=== PATIENT | male | born 1990 | race Caucasian/White ===

== ENCOUNTER 2017-09-20 13:08 | Emergency (ER) | payer BC ==
[~2017-09-20] VITALS: Ht 182.9 cm; Wt 65.9 kg
[2017-09-20 13:19] VITALS: Ht 182.9 cm; Wt 65.9 kg
[2017-09-20 13:40] LABS: APPEARANCE TURBID (CLEAR); BILIRUBIN NEGATIVE (NEGATIVE); COLOR RED (YELLOW); GLUCOSE NEGATIVE (NEGATIVE); KETONE NEGATIVE (NEGATIVE); NITRITE NEGATIVE (NEGATIVE); PROTEIN 1+ mg/dL (NEGATIVE); RED CELLS - URINE >50 /hpf (0-5); UROBILINOGEN NORMAL (NORMAL)
[2017-09-20 13:41] LABS: BACTERIA FEW /hpf (NONE SEEN)
[2017-09-20 14:31] LABS: BASOPHILS 0.1 % (0-2); EOSINOPHILS 0.2 % (0-7); HEMATOCRIT 44.2 % (42.0-54.0); HEMOGLOBIN 15.3 g/dL (13.5-17.5); IMMATURE GRANULOCYTES 0.3 % (0-5); MCH 31.3 pg (26.0-34.0); MCHC 34.6 g/dL (31.0-37.0); MCV 90.4 fL (80.0-100.0); MEAN PLATELET VOLUME 11.2 fL (7.4-10.4); MONOCYTES 3.9 % (2-11); NEUTROPHILS 88.5 % (40-80); PLATELET COUNT 186 10x3/uL (130-400); RBC 4.89 10x6/uL (4.20-6.10); RDW 12.5 % (11.5-14.5); WBC 16.5 10x3/uL (4.8-10.8)
[2017-09-20 15:47] LABS: ALBUMIN 4.4 g/dL (3.4-5.0); ALKALINE PHOSPHATASE 65 U/L (46-116); ALT (SGPT) 29 U/L (10-68); BILIRUBIN - TOTAL 1.01 mg/dL (0.2-1.3); CALC OSMOLALITY 282 mosm/kg (275-300); CALCIUM 9.4 mg/dL (8.5-10.1); CARBON DIOXIDE 25.6 mmol/L (21.0-32.0); CHLORIDE - SERUM 108 mmol/L (98-107); GLUCOSE 100 mg/dL (74-106); LIPASE 183 U/L (73-393); POTASSIUM - SERUM 3.6 mmol/L (3.5-5.1); PROTEIN - SERUM 7.6 g/dL (6.4-8.2); SODIUM 143 mmol/L (136-145); UREA NITROGEN 8 mg/dL (7-18); eGFR NON AFRICAN AMERICAN > 90 mL/min (90-120)
[2017-09-20] MEDS ORDERED: FLOMAX0.4 MG PO (15:52)
[2017-09-20] MEDS ORDERED: HYDROCODONE-APA1 TAB PO (15:52)
[2017-09-20 16:32] VITALS: BP 132/84
== END 2017-09-20 16:33 | disposition home or self-care (01) ==
LOC: D.ER 13:08
PROVIDERS: Emergency Medicine
DX: N20.9 Urinary calculus, unspecified (principal); N23 Unspecified renal colic

== ENCOUNTER 2017-09-22 13:06 | Emergency (ER) | payer BC ==
[~2017-09-22] VITALS: Ht 182.9 cm; Wt 70.5 kg
[~2017-09-22 13:06] MED LIST: FLOMAX0.4 MG PO; HYDROCODONE-APA1 TAB PO
[2017-09-22 13:16] VITALS: Ht 182.9 cm; Wt 70.5 kg
[2017-09-22 14:42] LABS: BASOPHILS 0.2 % (0-2); EOSINOPHILS 0.7 % (0-7); HEMATOCRIT 42.6 % (42.0-54.0); HEMOGLOBIN 14.6 g/dL (13.5-17.5); IMMATURE GRANULOCYTES 0.3 % (0-5); LYMPHOCYTES 10.9 % (15-50); MCH 31.5 pg (26.0-34.0); MCHC 34.3 g/dL (31.0-37.0); MONOCYTES 5.1 % (2-11); NEUTROPHILS 82.8 % (40-80); RBC 4.63 10x6/uL (4.20-6.10); RDW 12.6 % (11.5-14.5); WBC 18.7 10x3/uL (4.8-10.8)
[2017-09-22 14:58] LABS: ALBUMIN 4.4 g/dL (3.4-5.0); ALKALINE PHOSPHATASE 63 U/L (46-116); ALT (SGPT) 26 U/L (10-68); BILIRUBIN - TOTAL 0.56 mg/dL (0.2-1.3); CALC OSMOLALITY 286 mosm/kg (275-300); CALCIUM 9.6 mg/dL (8.5-10.1); CARBON DIOXIDE 26.2 mmol/L (21.0-32.0); CHLORIDE - SERUM 105 mmol/L (98-107); CREATININE - SERUM 1.2 mg/dL (0.6-1.3); GLUCOSE 110 mg/dL (74-106); POTASSIUM - SERUM 3.5 mmol/L (3.5-5.1); PROTEIN - SERUM 7.7 g/dL (6.4-8.2); SODIUM 144 mmol/L (136-145); UREA NITROGEN 9 mg/dL (7-18); eGFR NON AFRICAN AMERICAN 79 mL/min (90-120)
[2017-09-22 14:58] LABS: UDS - AMPHET NEGATIVE QUAL (NEGATIVE); UDS - BARB NEGATIVE QUAL (NEGATIVE); UDS - BENZO NEGATIVE QUAL (NEGATIVE); UDS - COCAINE NEGATIVE QUAL (NEGATIVE); UDS - OPIATE POSITIVE QUAL (NEGATIVE); UDS - PCP NEGATIVE QUAL (NEGATIVE); UDS - THC POSITIVE QUAL (NEGATIVE)
[2017-09-22 15:58] LABS: PLATELET COUNT 271 10x3/uL (130-400)
[2017-09-22 16:29] LABS: APPEARANCE CLEAR (CLEAR); COLOR YELLOW (YELLOW); GLUCOSE NEGATIVE (NEGATIVE); NITRITE NEGATIVE (NEGATIVE); PROTEIN NEGATIVE (NEGATIVE)
[2017-09-22 16:30] LABS: BACTERIA FEW /hpf (NONE SEEN); BILIRUBIN NEGATIVE (NEGATIVE); KETONE MODERATE mg/dL (NEGATIVE); RED CELLS - URINE 25-50 /hpf (0-5); UROBILINOGEN NORMAL (NORMAL); WHITE CELLS - URINE 0-5 /hpf (0-5)
[2017-09-22] MEDS ORDERED: ZOFRAN4 MG PO (18:28)
[2017-09-22] MEDS ORDERED: TORADOL10 MG PO (18:28)
[2017-09-22 20:35] VITALS: BP 112/58
== END 2017-09-22 19:54 | disposition home or self-care (01) ==
LOC: D.ER 13:06
PROVIDERS: Family Medicine
DX: R10.9 Unspecified abdominal pain (principal); R31.9 Hematuria, unspecified; Z87.442 Personal history of urinary calculi

== ENCOUNTER 2017-10-13 22:43 | Emergency (ER) | payer BC ==
[~2017-10-13] VITALS: Ht 182.9 cm; Wt 65.9 kg
[~2017-10-13 22:43] MED LIST changes: +TORADOL10 MG PO; +ZOFRAN4 MG PO
[2017-10-13 23:05] VITALS: Ht 182.9 cm; Wt 65.9 kg
[2017-10-13 23:44] LABS: HEMOGLOBIN 14.9 g/dL (13.5-17.5); LYMPHOCYTES 8.9 % (15-50); MCH 30.7 pg (26.0-34.0); MCHC 34.7 g/dL (31.0-37.0); MCV 88.7 fL (80.0-100.0); MEAN PLATELET VOLUME 9.2 fL (7.4-10.4); NEUTROPHILS 86.4 % (40-80); PLATELET COUNT 265 10x3/uL (130-400); RBC 4.85 10x6/uL (4.20-6.10); RDW 12.4 % (11.5-14.5); WBC 16.6 10x3/uL (4.8-10.8)
[2017-10-13 23:46] LABS: ANION GAP 17.2 mmol/L (8-16); CALCIUM 9.5 mg/dL (8.5-10.1); CARBON DIOXIDE 24.1 mmol/L (21.0-32.0); CREATININE - SERUM 1.5 mg/dL (0.6-1.3); POTASSIUM - SERUM 3.3 mmol/L (3.5-5.1)
[2017-10-14 00:10] LABS: APPEARANCE HAZY (CLEAR); BILIRUBIN NEGATIVE (NEGATIVE); COLOR YELLOW (YELLOW); GLUCOSE NEGATIVE (NEGATIVE); KETONE LARGE mg/dL (NEGATIVE); NITRITE NEGATIVE (NEGATIVE); PROTEIN NEGATIVE (NEGATIVE); UROBILINOGEN NORMAL (NORMAL)
[2017-10-14 00:12] LABS: BACTERIA MODERATE /hpf (NONE SEEN); EPITHELIAL CELLS 0-5 /hpf (0-5); MUCUS >1+ /lpf (NONE SEEN); WHITE CELLS - URINE 0-5 /hpf (0-5)
[2017-10-14] MEDS ORDERED: FLOMAX0.4 MG PO (00:32)
[2017-10-14] MEDS ORDERED: PERCOCET 5-3251 TAB PO (00:32)
[2017-10-14 01:10] VITALS: BP 128/74
== END 2017-10-14 01:10 | disposition home or self-care (01) ==
LOC: D.ER 22:43
PROVIDERS: Emergency Medicine
DX: N20.1 Calculus of ureter (principal); R33.9 Retention of urine, unspecified